=== PATIENT | female | born 1980 | race Caucasian/White ===

== ENCOUNTER → 2018-10-15 | Outpatient (CLI) | payer BC ==
[~2018-10-15] MED LIST: CATHETER FLUSH 10 ML SYR IV PRN; DCCL10CRX; IOHEXOL 350 MG/ML 100 ML (OMNIPAQUE 350) VIAL IV ONE; METH4TAB PO; METH500T PO; NS 100 ML (IVPB) BAG IV ONE; RECEIVED CONTRAST (Hold Metformin) IV SCH; TRAM-42 PO
--- NOTE | 2018-10-15 16:34 | Diagnostic Imaging Report ---
INDICATION: Abdominal pain, nausea, and fever. TECHNIQUE: A CT of the abdomen was obtained with IV contrast. FINDINGS: The visualized portions of the lung bases are clear. There are no pleural fluid collections. There is no free intraperitoneal air. The liver and gallbladder appear normal. The spleen, adrenals, and pancreas appear normal. The kidneys bilaterally are unremarkable. There is no retroperitoneal mass or adenopathy. There is no ascites or abnormal fluid collection. The visualized bowel loops appear unremarkable. There is no periappendiceal inflammatory change. IMPRESSION: Essentially negative CT of the abdomen. Dictated by: Dictated on workstation # [id number]
== END ==
LOC: RAD 15:11
PROVIDERS: ATTEND Nurse Practitioner
DX: R10.33 Periumbilical pain (principal); R11.0 Nausea; R50.9 Fever, unspecified
CPT/HCPCS: 74160

== ENCOUNTER → 2018-10-16 | Outpatient (CLI) | payer BC ==
[~2018-10-16] MED LIST changes: -CATHETER FLUSH 10 ML SYR IV PRN
--- NOTE | 2018-10-16 11:34 | Diagnostic Imaging Report ---
PROCEDURE: CT pelvis with contrast. TECHNIQUE: Oral and intravenous contrast were administered with pelvic CT performed. INDICATION: Lower abdominal and pelvic pain. COMPARISON: CT abdomen of prior day. FINDINGS: Trace free pelvic fluid is likely physiologic in a female this age. The right ovary has a peripheral enhancing attenuated cyst likely due to corpus luteum. The cyst measures 1.8 x 2.0 cm. The uterus is absent. No left ovary is appreciated. Visualized aspects of the colon and small bowel are normal. Normal appendix. Normal regional skeleton. No pelvic or inguinal lymphadenopathy. No abdominal, pelvic or inguinal hernia. IMPRESSION: 1. Post hysterectomy and probable left oophorectomy. Right ovary has a physiologic appearance with the corpus luteum measuring 2.0 x 1.9 cm. 2. No acute inflammatory process in the pelvis. Dictated by: Dictated on workstation # [id number]
== END ==
LOC: RAD 09:57
PROVIDERS: ATTEND Nurse Practitioner
DX: R10.33 Periumbilical pain (principal); R10.2 Pelvic and perineal pain; Z90.710 Acquired absence of both cervix and uterus
CPT/HCPCS: 72193